=== PATIENT | male | born 1960 | race Caucasian/White ===

== ENCOUNTER 2021-04-26 22:45 | Emergency (ER) | payer SELFPAY ==
[~2021-04-26] VITALS: Ht 180.3 cm; Wt 90.7 kg
[~2021-04-26 22:45] MED LIST: LISINOPRIL-HCT1 EACH PO; NORCO 5-325 TA1 EACH PO; ZOFRAN ODT4 MG SL
== END 2021-04-27 03:50 | disposition short-term general hospital (02) ==
LOC: ED 22:45
DX: S02.0XXA Fracture of vault of skull, initial encounter for closed fracture (principal); S02.841A Fracture of lateral orbital wall, right side, initial encounter for closed fracture; S02.19XA Other fracture of base of skull, initial encounter for closed fracture; S12.100A Unspecified displaced fracture of second cervical vertebra, initial encounter for closed fracture; S22.41XA Multiple fractures of ribs, right side, initial encounter for closed fracture; S42.111A Displaced fracture of body of scapula, right shoulder, initial encounter for closed fracture; X58.XXXA Exposure to other specified factors, initial encounter; I10 Essential (primary) hypertension; Z87.891 Personal history of nicotine dependence; Z88.0 Allergy status to penicillin; Z79.899 Other long term (current) drug therapy; Z20.822 Contact with and (suspected) exposure to COVID-19
CPT/HCPCS: 70450; 70486; 71260; 72125; 73552; 74177; 80053; 81001; 83690; 85025; 86850; 86900; 86901; 90471; 90714; 99285-25; C9803; G0480; Q9967; U0003

== ENCOUNTER 2021-06-04 23:47 | Emergency (ER) | payer OTHER ==
[~2021-06-04] VITALS: Ht 180.3 cm; Wt 90.7 kg
[2021-06-05] MEDS ORDERED: CYCLOBENZAPRINE5 MG PO (02:09)
--- NOTE | 2021-06-05 07:03 | EKG ---
[facility] [address] [facility] [place] [address] Signed Normal sinus rhythm Nonspecific T wave abnormality Prolonged QT Abnormal ECG No previous ECGs available Confirmed by IRMA FAY MD ([id number]) on 06/05/2021 7:03:05 AM Electronically Signed By: IRMA FAY MD 06/05/21 0703 PATIENT NAME: JORGE SORTO Electrocardiogram DATE OF : 62 PHYSICIAN: IRMA FAY MD REPORT #: [id number] REPORT IS CONFIDENTIAL AND NOT TO BE RELEASED WITHOUT AUTHORIZATION
== END 2021-06-05 02:35 | disposition home or self-care (01) ==
LOC: ED 23:47
DX: R07.89 Other chest pain (principal); F15.10 Other stimulant abuse, uncomplicated; I10 Essential (primary) hypertension; Z87.891 Personal history of nicotine dependence; Z88.0 Allergy status to penicillin
CPT/HCPCS: 36415; 71045; 80053; 83735; 84484; 85025; 93005; 93010; 96374; 96375; 99285-25; J2060; J2270

== ENCOUNTER 2021-06-06 23:59 | Emergency (ER) | payer OTHER ==
[~2021-06-06] VITALS: Ht 180.3 cm; Wt 96.0 kg
[~2021-06-06 23:59] MED LIST changes: +CYCLOBENZAPRINE5 MG PO
--- OUTSIDE RECORDS SUMMARY | 2021-06-07 00:02 | XMS ---
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 Joey has no Care Guidelines for this patient. Deyanira VISIT COUNT (12 MO.) 1 [facility] 3 [facility] [place] [facility]. TOTAL 4 NOTE: Visits indicate total known visits. ED/UCC VISIT TRACKING (12 MO.) [facility] COMPLAINT: - VOMITING, ABD PAIN 06/04/2021 23:48 [facility] [place] TYPE: Emergency COMPLAINT: - CHEST PAIN 04/27/2021 05:25 [facility] TYPE: Emergency DIAGNOSES: 13482. trauma 04/26/2021 22:45 [facility] [place] TYPE: Emergency COMPLAINT: - HEAD INJURY DIAGNOSES: - Fracture of vault of skull, initial encounter for closed fracture - Exposure to other specified factors, initial encounter - Other fracture of base of skull, initial encounter for closed fracture - Fracture of lateral orbital wall, right side, initial encounter for closed fracture - Fracture of vault of skull, initial encounter for closed fracture - Multiple fractures of ribs, right side, initial encounter for closed fracture - Unspecified displaced fracture of second cervical vertebra, initial encounter for closed fracture - Displaced fracture of body of scapula, right shoulder, initial encounter for closed fracture - Other chcf (current) drug therapy - Allergy status to penicillin - Essential (primary) hypertension - Personal history of nicotine dependence INPATIENT VISIT TRACKING (12 MO.) 04/27/2021 05:25 [facility] TYPE: Surgery DIAGNOSES: 41554. Fall on same level, unspecified, initial encounter 38914. Fall on same level, unspecified, initial encounter [email or web address]
[2021-06-07] MEDS ORDERED: LASIX20 MG PO (02:54)
== END 2021-06-07 03:05 | disposition home or self-care (01) ==
LOC: ED 23:59
DX: R07.81 Pleurodynia (principal); Z20.822 Contact with and (suspected) exposure to COVID-19; I10 Essential (primary) hypertension; Z88.0 Allergy status to penicillin; Z79.899 Other long term (current) drug therapy; Z87.891 Personal history of nicotine dependence
CPT/HCPCS: 71045; 96374; 96375; 99283-25; C9803; J1940; J2270; J2405; J7030; U0003